=== PATIENT | male | born 1985 | race Hispanic/Latino ===

== ENCOUNTER 2017-05-08 11:02 | Emergency (ER) | payer OTHER ==
[~2017-05-08] VITALS: Ht 157.5 cm; Wt 50.0 kg
[2017-05-08] MEDS ORDERED: ULTRAM50 M1 PO (13:45)
[2017-05-08 14:07] VITALS: BP 153/90
== END 2017-05-08 14:10 | DRG 563 ==
LOC: ED 11:02
PROC: 2W3BXYZ Immobilization of Left Upper Arm using Other Device (ICD-10-PCS; principal; 2017-05-08)
DX: S42.032A Displaced fracture of lateral end of left clavicle, initial encounter for closed fracture (principal); Y04.0XXA Assault by unarmed brawl or fight, initial encounter; Y92.149 Unspecified place in prison as the place of occurrence of the external cause
CPT/HCPCS: J2060